=== PATIENT | male | born 1970 | race Caucasian/White ===

== ENCOUNTER 2024-09-06 10:04 | Day surgery (SDC) | payer OTHER, SELFPAY ==
[2024-09-06] VITALS (18 sets, daily range): BP systolic 112–140; BP diastolic 74–98; PULSE 76–89; RESP 10–16; TEMP 35.9–37.4; O2SAT 92–97; BMI 32.5
--- OUTSIDE RECORDS SUMMARY | 2024-09-06 10:13 | XMS_ITS | Clinical Summary ---
Author Organization [facility] Address [place], [place] [address] Care Team Providers Care Human Resources Psychologist Name Role Phone Gosia Lang MD Primary Care Provider [phone] Allergies Active Allergy Reactions Criticality Noted Date Comments Sulfa (Sulfonamide Antibiotics) Hives High Medications ibuprofen (ADVIL; MOTRIN) 200 mg tablet Take 400 mg by mouth every 6 hours if needed. Active acetaminophen (TYLENOL EXTRA STRGTH) 500 mg tablet Take 500 mg by mouth every 6 hours if needed. Max acetaminophen dose: 4000mg in 24 hrs. Active oxyCODONE-aceta minophen (PERCOCET) 5-325 mg per tabletIndicatio ns:Closed fracture of right ankle, initial encounter Take 1-2 Tablets by mouth every 4 hours if needed for Pain. Max acetaminophen dose: 4000mg in 24 hrs. 10 Tablet 5 2:51 PM GRADES 7 8 TUTOR 09/01/19 25 Active docusate (COLACE) 100 mg capsuleIndicati ons:Closed fracture of right ankle, initial encounter Take 1 Capsule (100 mg) by mouth two times daily. 10 Capsule 5 2:51 PM GRADES 7 8 TUTOR 09/01/19 25 Active cholecalciferol (VITAMIN D3) 50,000 unit capsuleIndicati ons:Vitamin D deficiency Take 1 Capsule (50,000 units) by mouth every Friday and . 24 Capsule 09/06/19 25 Active durable medical equipment (DME)Indication s:Closed fracture of base of fifth metatarsal bone of left foot at metaphyseal-anali physeal junction, initial encounter suha Ann xlarge, Ref: -XL 1 Each 01/10/20 21 025 Discontin ued(*Nandini ent states no longer taking) oxyCODONE (ROXICODONE) 5 mg immediate release tabletIndicatio ns:Umbilical hernia without obstruction and without gangrene,Ventra l hernia without obstruction or gangrene Take 1 Tablet (5 mg) by mouth every 4 hours if needed for Pain. 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 [place] [address] Ryne Jean MD Closed fracture of right ankle, initial encounter (Primary Dx) Discharge Disposition: Home Self Care 09/01/2024 Travel 08/19/2024 11:30 AM GRADES 7 8 TUTOR Office Visit [address] [address] Lisset Vargas DO Consult (hernia umbilical) 08/19/2024 Travel 08/16/2024 9:10 AM GRADES 7 8 TUTOR Office Visit [address] [address] Luis Manuel Dean PA Lump (uncomfortable - pain, shortness of breath with it x 2 yrs) 08/16/2024 Travel from Last 3 Months Immunizations Name Administration Dates Next Due COVID-19 vaccine (Moderna 10 0mcg/0.5mL) PF, MDV 11/29/2020,11/01/2020 Influenza Virus, Unspecified 05/25/2013 Influenza, IIV3 (Age >=3 years) 05/24/2013 Influenza, IIV4 06/28/2023,05/28/2021,05/29/2020 Tdap 04/14/2009 Family History Medical History Relation Name Comments No Known Problems Brother 1 Allergies Brother 2 sunflower and g rains No Known Problems Daughter Heart Disease Father [place] x4 No Known Problems Half-Brother No Known Problems Half-Sister No Known Problems Maternal Aunt No Known Problems Maternal Uncle Arthritis Mother No Known Problems Paternal Aunt Heart Disease Paternal Grandmother No Known Problems Paternal Uncle No Known Problems Sister 1 No Known Problems Sister 2 No Known Problems Son Relation Name Status Comments Brother 1 Alive Brother 2 Daughter Father Alive Half-Brother Half-Sister Maternal Aunt Maternal Grandfather Maternal Grandmother Maternal Uncle Mother Alive Paternal Aunt Paternal Grandfather Paternal Grandmother Paternal Uncle Sister 1 Alive Sister 2 Alive Son Social History Tobacco Use Types Packs/Day Years Used Date Smoking Tobacco: Never Smokeless Tobacco: Never Tobacco Cessation:Counseling Given: Yes Alcohol Use Standard Drinks/Week Comments Not Currently 0 (1 standard drink = 0.6 oz pur e alcohol) PHQ-2 Answer Date Recorded PHQ-2 TOTAL SCORE 0 08/16/2024 Financial Resource Strain Answer Date R ecorded Difficulty of Paying Living Expenses Not on file 08/04/2021 Difficulty of Paying Living Expenses Not on file 08/04/2021 Interpersonal Safety Answer Date Record ed Are you being hit, kicked, p ushed or yelled at (see row info)? 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 Not on file Not on file Obstetrics History Last Filed Vital Signs Vital Sign Reading Time Taken Comments Blood Pressure 128/82 09/03/2024 9:28 AM GRADES 7 8 TUTOR Pulse 88 09/03/2024 9:28 AM GRADES 7 8 TUTOR Temperature 36.8 C (98.2 F) 09/01/2024 10:13 AM GRADES 7 8 TUTOR Respiratory Rate 16 09/01/2024 2:16 PM GRADES 7 8 TUTOR Oxygen Saturation 96% 09/03/2024 9:28 AM GRADES 7 8 TUTOR Inhaled Oxygen Concentration - - Weight 116.8 kg (257 lb 6.4 oz) 09/02/2024 1:22 PM GRADES 7 8 TUTOR Height 185.4 cm (6' 1) 09/01/2024 10:1 3 AM GRADES 7 8 TUTOR Body Mass Index 33.96 09/01/2024 10:13 AM GRADES 7 8 TUTOR Plan of Treatment Upcoming Encounters Date Type Department Care Team (Late st Contact Info) Description 09/14/2024 11:00 AM GRADES 7 8 TUTOR [facility] [address] [place] [address] Kehinde Lowery DPM [address] [place] [address] 09/21/2024 9:45 AM GRADES 7 8 TUTOR [facility] [place] [address] [address] [phone] Kehinde Lowery DPM [address] [place] [address] 09/28/2024 7:30 AM GRADES 7 8 TUTOR Office Visit [address] [phone] Luis Manuel Dean PA [address] [place] [address] 10/06/2024 8:15 AM GRADES 7 8 TUTOR Hospital Encounter [address] [address] Lisset Vargas [address] [place] [address] 10/06/2024 8:15 AM GRADES 7 8 TUTOR - 10/06/2024 11:45 AM GRADES 7 8 TUTOR Surgery [address] [address] Lisset Vargas [address] [address] Robotic assisted laparoscopic ventral and umbilical hernia repair with possible mesh 10/14/2024 10:45 AM CDT [facility] [address] [address] Kehinde Lowery, DPM [address] [place] [address] 10/25/2024 8:30 AM CDT Office Visit [address] [address] Luz Marina Smalls PA [address] [place] [address] Scheduled Procedures Name Priority Associated Diagnoses Date/Ti co ROBOTIC ASSISTED UMBILICAL HERNIA REPAIR XI Elective Umbilical hernia without obstruction and without gangrene Ventral hernia without obstruction or gangrene 10/06/2024 8:15 AM GRADES 7 8 TUTOR LAPAROSCOPIC HERNIORRHAPHY VENTRAL Elective Umbilical hernia without obstruction and without gangrene Ventral hernia without obstruction or gangrene 10/06/2024 8:15 AM GRADES 7 8 TUTOR Health Maintenance Due Date Last Done Comments HIV for age 15-65 1983 Hepatitis C screening for ag e 18-79 1986 Lipids for age 45-75 2013 Pneumococcal series for age 50+ (1 of 1 - PCV) 2018 Zoster (shingles) series for age 50+ (1 of 2) 2018 Tetanus booster 04/14/2019 04/14/2009 Colonoscopy through age 75 03/03/2023 09/03/2022 COVID-19 vaccine series ( season) 2024 06/15/2023, 06/26/2021, 11/29/2020, Additional history exists Influenza for age 50-64 04/04/2024 06/28/20, 05/28/2021, 05/29/2020, Additional history exists BMI (ht and wt on same day) for age 18+ 08/16/2025 08/16/2024, 04/24/2022, 02/09/2021, Additional history exists Depression screening for age 12+ 08/19/2025 08/19/2024, 08/16/2024, 04/24/2022, Additional history exists Tdap Completed 04/14/2009 Medical Devices Implanted Type Area Employee Health Rn Device Identifier Shelf Expiration Date Model / Serial / Lot 5.5mm Low Profile Ulrich Screw Titanium Implanted:Qty: 1 on 01/15/2021 by Kehinde Lowery DPM at [facility] Left: Foot [employer] / / N/A Procedures Procedure Name Priority Date/Time Associated Diagnosis Comments VITAMIN D 25 (DEFICIENCY) Routine 09/03/2024 9:57 AM GRADES 7 8 TUTOR Vitamin D deficiency CBC W PLT NO DIFF Routine 09/03/2024 9:5 7 AM GRADES 7 8 TUTOR Pre-operative examination BASIC METABOLIC PANEL Routine 09/03/2024 9:57 AM GRADES 7 8 TUTOR Pre-operative examination XR ANKLE 2 VIEWS RIGHT STAT 09/01/2024 1:11 PM GRADES 7 8 TUTOR XR ANKLE 2 VIEWS RIGHT PORTABLE STAT 09/01/2024 12:12 PM GRADES 7 8 TUTOR XR ANKLE 3 VIEWS RIGHT STAT 09/01/2024 10:19 AM GRADES 7 8 TUTOR COLONOSCOPY 09/03/2022 7:20 AM GRADES 7 8 TUTOR from Last 3 Months or Most Recently Relevant to Health Maintenance Results * (ABNORMAL) VITAMIN D 25 (DEFICIENCY) (09/03/2024 9:57 AM GRADES 7 8 TUTOR) Pathologist [facility] VITAMIN D,25-OH,TOTAL,IA 14(L) 30 - 100 ng/mL [employer] Comment: Vitamin D Status 25-OH Vitamin D: Deficiency: <20 ng/mL Insufficiency: 20 - 29 ng/mL Optimal: > or = 30 ng/mL For 25-OH Vitamin D testing on patients on D2-supplementation and patients for whom quantitation of D2 and D3 fractions is required, the QuestAssureD(TM) 25-OH VIT D, (D2,D3), LC/MS/MS is recommended: order code 30782 (patients >2yrs). See Note 1 Note 1 For additional information, please refer to http://education.DinnerTime/faq/TZP286 (This link is being provided for informational/ educational purposes only.) Blood BLOOD SPECIMEN / Unknown 09/03/2024 9:57 AM GRADES 7 8 TUTOR 09/03/2024 9:58 AM GRADES 7 8 TUTOR Narrative [facility] - 09/04/2024 5:17 AM GRADES 7 8 TUTOR FASTING:NO FASTING: NO Gosia Lang MD SEND OUTS Final Resu lt [facility] [address] [place] [address], [facility] [address] [place] [address] * CBC W PLT NO DIFF (09/03/2024 9:57 AM GRADES 7 8 TUTOR) Pathologist [facility] WHITE BLOOD CELL COUNT 7.5 3.8 - 10.8 Thousand/u L [employer] RED BLOOD CELL COUNT 5.30 4.20 - 5.80 Million/uL [facility] HEMOGLOBIN 16.7 13.2 - 17.1 g/dL [facility] HEMATOCRIT 47.1 38.5 - 50.0 % [facility] MCV 88.9 80.0 - 100.0 fL [employer] MCH 31.5 27.0 - 33.0 pg [facility] MCHC 35.5 32.0 - 36.0 g/dL [employer] Comment: For adults, a slight decrease in the calculated MCHC value (in the range of 30 to 32 g/dL) is most likely not clinically significant; however, it should be interpreted with caution in correlation with other red cell parameters and the patient's clinical condition. RDW 13.1 11.0 - 15.0 % [employer] PLATELET COUNT 144 140 - 400 Thousand/u L [employer] MPV 10.8 7.5 - 12.5 fL [employer] Blood BLOOD SPECIMEN / Unknown 09/03/2024 9:57 AM GRADES 7 8 TUTOR 09/03/2024 9:58 AM GRADES 7 8 TUTOR Narrative [facility] - 09/04/2024 3:59 AM GRADES 7 8 TUTOR FASTING:NO FASTING: NO us Gosia Lang MD HEMATOLOGY Final Resu lt [facility] [address] [place] [address], [facility] [address] [place] [address] * BASIC METABOLIC PANEL (09/03/2024 9:57 AM GRADES 7 8 TUTOR) [facility] GLUCOSE 93 65 - 139 mg/dL [employer] Comment: Non-fasting reference interval UREA NITROGEN (BUN) 17 7 - 25 mg/dL [employer] CREATININE 0.80 0.70 - 1.30 mg/dL [facility] EGFR 104 > OR = 60 mL/min/1. 73m2 [facility] BUN/CREATININE RATIO SEE NOTE: 6 - 22 (calc) [facility] Comment: Not Reported: BUN and Creatinine are within reference range. SODIUM 139 135 - 146 mmol/L [facility] POTASSIUM 4.0 3.5 - 5.3 mmol/L [facility] CHLORIDE 108 98 - 110 mmol/L [facility] CARBON DIOXIDE 24 20 - 32 mmol/L [facility] ELECTROLYTE BALANCE 7 7 - 17 mmol/L (calc) [facility] CALCIUM 8.8 8.6 - 10.3 mg/dL [facility] Blood BLOOD SPECIMEN / Unknown 09/03/2024 9:57 AM GRADES 7 8 TUTOR 09/03/2024 9:58 AM GRADES 7 8 TUTOR Narrative [facility] - 09/04/2024 3:59 AM GRADES 7 8 TUTOR FASTING:NO FASTING: NO Gosia Lang MD CHEMISTRY Final Resu lt [facility] [address] [place] [address], [facility] [address] [place] [address] * XR ANKLE 2 VIEWS RIGHT (09/01/2024 1:11 PM GRADES 7 8 TUTOR) Anatomical Region Laterality Modality ANKLES, ANKLE R Digital Radiogra phy 09/01/2024 1:31 PM GRADES 7 8 TUTOR Narrative 09/01/2024 1:31 PM GRADES 7 8 TUTOR For Patients: As a result of the Century Cures Act, medical imaging exams and procedure reports are released immediately into your electronic medical record. You may view this report before your referring provider. If you have questions, please contact your health care provider. INDICATION: Postreduction recheck. Technique : Three views right ankle Comparison : Two views of the right ankle obtained earlier on this same date. Findings : Acute trimalleolar fracture. Lateral talar and fibula subluxation very slightly diminished from the previous study. Allowing for appropriate medial ankle joint spacing, the lateral subluxation is approximally 6 mm versus 8 on the previous. No AP subluxation. Dictated by Maria Esther Paniagua MD @ 09/01/2024 1:31:09 PM (Electronically Signed) Procedure Note Alfonso Paniagua MD - 09/01/2024 For Patients: As a result of the Cures Act, medical imagingexams and procedure reports are released immediately into your electronicmedical record. You may view this report before your referring provider.If you have questions, please contact your health care provider. INDICATION: Postreduction recheck. Technique : Three views right ankle Comparison : Two views of the right ankle obtained earlier on this same date. Findings : Acute trimalleolar fracture. Lateral talar and fibula subluxation very slightly diminished from theprevious study. Allowing for appropriate medial ankle joint spacing, thelateral subluxation is approximally 6 mm versus 8 on the previous. No APsubluxation. Dictated by Maria Esther Paniagua MD @ 09/01/2024 1:31:09 PM (Electronically Signed) Ryne Jean MD GENERAL IMAGING Final Re sult * XR ANKLE 2 VIEWS RIGHT PORTABLE (09/01/2024 12:12 PM GRADES 7 8 TUTOR) Anatomical Region Laterality Modality ANKLES, ANKLE R Digital Radiogra phy 09/01/2024 12:2 1 PM GRADES 7 8 TUTOR Narrative 09/01/2024 12:21 PM GRADES 7 8 TUTOR For Patients: As a result of the Cures Act, medical imaging exams and procedure reports are released immediately into your electronic medical record. You may view this report before your referring provider. If you have questions, please contact your health care provider. Indication: Post reduction/recheck Technique: Two views of the right ankle Comparison: Same-day right ankle radiograph Findings/Impression: Overlying cast limits osseous and soft tissue details. Grossly unchanged alignment of the right ankle trimalleolar fracture-dislocation with lateral displacement of the talus relative to the tibia by approximately 1.2 centimeters. Dictated by Jam Noe MD @ 09/01/2024 12:21:10 PM (Electronically Signed) Procedure Note Jam Noe MD - 09/01/2024 For Patients: As a result of the Cures Act, medical imagingexams and procedure reports are released immediately into your electronicmedical record. You may view this report before your referring provider.If you have questions, please contact your health care provider. Indication: Post reduction/recheck Technique: Two views of the right ankle Comparison: Same-day right ankle radiograph Findings/Impression: Overlying cast limits osseous and soft tissue details. Grossly unchanged alignment of the right ankle trimalleolarfracture-dislocation with lateral displacement of the talus relative tothe tibia by approximately 1.2 centimeters. Dictated by Jam Noe MD @ 09/01/2024 12:21:10 PM (Electronically Signed) Ryne Jean MD GENERAL IMAGING Final Re sult * XR ANKLE 3 VIEWS RIGHT (09/01/2024 10:19 AM GRADES 7 8 TUTOR) Anatomical Region Laterality Modality ANKLES, ANKLE R Digital Radiogra phy 09/01/2024 10:3 7 AM GRADES 7 8 TUTOR Narrative 09/01/2024 10:37 AM GRADES 7 8 TUTOR For Patients: As a result of the Cures Act, medical imaging exams and procedure reports are released immediately into your electronic medical record. You may view this report before your referring provider. If you have questions, please contact your health care provider. Indication: Trauma Technique: Three views of the right ankle Comparison: None Findings: Obliquely oriented, displaced fracture of the distal fibula. Transverse, displaced fracture of the medial malleolus. Obliquely oriented, nondisplaced fracture of the posterior malleolus. The talus is displaced laterally relative to the tibia by approximately 1.4 centimeters. The distal fracture segments of the fibula and tibia maintain their articulation with the talus. Small ankle effusion. Mild soft tissue edema about the ankle. No suspicious osseous lesions. Os trigonum. The soft tissues are unremarkable. Impression: Trimalleolar fracture-dislocation as detailed above. Dictated by Jam Noe MD @ 09/01/2024 10:37:44 AM (Electronically Signed) Procedure Note Jam Noe MD - 09/01/2024 For Patients: As a result of the Cures Act, medical imagingexams and procedure reports are released immediately into your electronicmedical record. You may view this report before your referring provider.If you have questions, please contact your health care provider. Indication: Trauma Technique: Three views of the right ankle Comparison: None Findings: Obliquely oriented, displaced fracture of the distal fibula. Transverse,displaced fracture of the medial malleolus. Obliquely oriented,nondisplaced fracture of the posterior malleolus. The talus is displaced laterally relative to the tibia by approximately1.4 centimeters. The distal fracture segments of the fibula and tibiamaintain their articulation with the talus. Small ankle effusion. Mild soft tissue edema about the ankle. No suspicious osseous lesions. Os trigonum. The soft tissues are unremarkable. Impression: Trimalleolar fracture-dislocation as detailed above. Dictated by Jam Noe MD @ 09/01/2024 10:37:44 AM (Electronically Signed) us Ryne Jean MD GENERAL IMAGING Final Re sult * COLONOSCOPY (09/03/2022 7:20 AM GRADES 7 8 TUTOR) 09/03/2022 7:20 AM GRADES 7 8 TUTOR Narrative Transcriptions Sonali Giron DO - 09/03/2022 8:00 AM CST Patient Name: Barber Da Silva Procedure Date: 09/03/2022 Gender: Male Date of : 1970 Admit Type: Ambulatory Procedure: Colonoscopy Proceduralist: Sonali Giron MD [facility] Referring MD: Sonali Giron MD Indications/Pre-Op Diagnosis: This is the patient's first colonoscopy, Positive fecal immunochemical test Medications: Propofol per Anesthesia Procedure Description: The patient had risks, benefits and alternatives explained to andgave informed consent. The patient had a stable cardiopulmonary status and judged an adequate candidate for conscious sedation. The endoscope [id number] was passed through the anus andadvanced to the cecum, identified by appendiceal orifice and ileocecal valve.The colonoscopy was performed without difficulty. The patient toleratedthe procedure well. The quality of the bowel preparation was good. The ileocecal valve, appendiceal orifice, and rectum were photographed. Complications: No immediate complications. Estimated Blood Loss & Specimen: Estimated blood loss: none. Specimen collected - Yes and sent to Laboratory Findings: A 4 mm polyp was found in the sigmoid colon. The polyp was sessile.The polyp was removed with a hot snare. Resection and retrieval were complete. Verification of patient identification for the specimen was done. Estimated blood loss was minimal. Non-bleeding internal hemorrhoids were found during retroflexion. The hemorrhoids were Grade II (internal hemorrhoids that prolapse butreduce spontaneously). Impressions/Post-Op Diagnosis: - One 4 mm polyp in the sigmoid colon, removed with a hot snare. Resected and retrieved. - Non-bleeding internal hemorrhoids. Recommendation: - Discharge patient to home. - Patient has a contact number available for emergencies. The signsand symptoms of potential delayed complications were discussed with the patient. Return to normal activities tomorrow. Written discharge instructions were provided to the patient. - High fiber diet. - Continue present medications. - Await pathology results. - Repeat colonoscopy in 5-10 years for surveillance based onpathology results. Moderate Sedation: Moderate (conscious) sedation was personally administered by an anesthesia professional. The following parameters were monitored:oxygen saturation, heart rate, blood pressure, and response to care. Sonali Giron MD 09/03/2022 7:59:58 AM This report has been signed electronically. 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 Healthcare Directive 04/16/2022 022 * Full Code (Latest Code Status on File) Date Activated Date Inactivated Comments 09/03/2022 6:48 AM 09/03/2022 11:11 AM Question Answer Comments Code Status Discussion: Discussed * Full Code Date Activated Date Inactivated Comments 04/15/2022 11:51 PM 04/19/2022 1:00 PM Question Answer Comments Code Status Discussion: Reviewed Preferences * Full Code Date Activated Date Inactivated Comments 01/15/2021 7:31 AM 01/15/2021 1:42 PM Question Answer Comments Code Status Discussion: Discussed Care Teams Human Resources Psychologist Relationship Specialty Start Date End Date Gosia Lang MD PCP - General 08/15/08
--- OUTSIDE RECORDS SUMMARY | 2024-09-06 10:13 | XMS_ITS | Clinical Summary ---
Author Organization [facility] Address [address] [place] [address] Care Team Providers Care Pourer Metal Name Role Phone Gosia Lang MD Primary Care Provider [phone] Source Comments You are receiving this document as you are listed as the primary care provider,follow-up provider, or the patient has been referred to you for consultation.This is in compliance with the Medicare and[facility] EHR Incentive Program,which states Providers who transition their patient to another setting of careor provider of care or refers their patient to another provider of care shouldprovide summary care record for each transition of care or referral. [facility] Daily Caller Allergies Active Allergy Reactions Criticality Noted Date Comments Sulfa Antibiotics 11/03/2017 Childhood Medications No known medications Active Problems No known active problems Social History Tobacco Use Types Packs/Day Years Used Date Smoking Tobacco: Never Assessed Sex and Gender Information Value Date Recorded Sex Assigned at Not on file Gender Identity Not on file Sexual Orientation Not on file Plan of Treatment Health Maintenance Due Date Last Done Comments Colon Cancer Screening Plan Due 1968 Hep C Screening (Preventive Services) 1968 PSA Screening Discussion 1968 HIV Screening (Preventive Services) 1984 Adult Preventive Visit 1986 HepB (1) 1987 Cholesterol 2003 Zoster/Shingles (1 of 2) 2018 DTaP/Tdap/Td (2 - Tdap) 04/14/2019 04/14/2009 COVID-19 Vaccine (2 - 2023-2 5 season) 2024 11/01/2020 Influenza (#1) 2024 05/29/2020, 05/24/2013 HepA Aged Out No longer eligi ble based on patient's age to complete this topic Hib Aged Out No longer eligi ble based on patient's age to complete this topic IPV (Polio) Aged Out No longer eligi ble based on patient's age to complete this topic MCV4 Aged Out No longer eligi ble based on patient's age to complete this topic Pneumococcal Aged Out No longer eligi ble based on patient's age to complete this topic Care Teams Pourer Metal Relationship Specialty Start Date End Date Gosia Lagn MD [address] [place] [address] JANE MERAZ [id number] PCP - General 03/11/16
[2024-09-06] MEDS: SODIUM CHLORIDE 0.9 % (FLUSH) 10 ML SYRINGE IVF (10:47)
[2024-09-06] MEDS: LACTATED RINGERS 500 ML 500 ML 100 ML IV ×2 (10:49→11:35)
[2024-09-06] MEDS: MIDAZOLAM HCL 1 MG/ML inj IVP (11:08)
[2024-09-06] MEDS: fentaNYL 100 MCG/2 ML inj IVP (11:08)
--- NOTE | 2024-09-06 11:16 | SUR.PREOP ---
TIME?OUT:?1107 PT/Humera Taylor RN/Dr. Nick MDA?VERIFICATION?OF?SURGICAL?SITE right ankle,?PROCEDURE,?AND?CONSENT OBTAINED?PRIOR?TO?INVASIVE?PROCEDURE.
--- NOTE | 2024-09-06 11:30 | CRLHL7_ITS ---
For Patients: As a result of the Cures Act, medical imaging exams and procedure reports are released immediately into your electronic medical record. You may view this report before your referring provider. If you have questions, please contact your health care provider. Indication: ORIF Right Ankle Technique: 3 fluoroscopic images of right ankle. Fluoroscopic time 1 minute 2.9 seconds. IMPRESSION: Fluoroscopic guidance for open reduction internal fixation. Dictated by Miki Em MD @ 09/06/2024 1:46:11 PM (Electronically Signed)
[2024-09-06] MEDS: CEFAZOLIN 2 GM INJ IVP (11:34)
--- NOTE | 2024-09-06 11:39 | P.ANES_ITS ---
Anesthesia Charges Start Date/Time Anesthesia Start Date: 09/06/24 Anesthesia Start Time: 11:15 Stop Date/Time Anesthesia Stop Date: 09/06/24 Anesthesia Stop Time: 14:21 Coding CPT Codes CPT Codes: ANESTH LOWER LEG BONE SURG - 11332 ([id number]) P2 - PATIENT W/MILD SYST DISEASE, QK - DIRECTOR ENTERPRISE SALES 2-4 CNCRNT ANES PROC, QX - PUBLIC HEALTH SANITARIAN SVC W/ MD MED DIRECTION
--- NOTE | 2024-09-06 11:39 | W.ANESCHARGE ---
Anesthesia Charges Start Date/Time Anesthesia Start Date: 09/06/24 Anesthesia Start Time: 11:15 Stop Date/Time Anesthesia Stop Date: 09/06/24 Anesthesia Stop Time: 14:21 Coding CPT Codes CPT Codes: ANESTH LOWER LEG BONE SURG - 69418 ([id number]) P2 - PATIENT W/MILD SYST DISEASE, QK - HOUSEKEEPING ASSISTANT 2-4 CNCRNT ANES PROC, QX - BARREL RIFLER BROACH SVC W/ MD MED DIRECTION
--- NOTE | 2024-09-06 11:39 | W.PM.NB ---
Nerve Block Nerve Block Time Seen by Provider: 11:12 Date Seen: 09/06/24 Type of block requested by surgeon for post-operative analgesia: adductor canal Side: right Time out performed: Yes Verification of patient name: Yes Verification of date of : Yes Site marking: site marked Name of person performing procedure: Nick Continuous monitoring Was continuous monitoring of O2 sat, B/P, manager cardiac, recorded every 15 minutes?: Yes Procedure Checklist: sterile prep, needles and gloves Ultrasound guided. Images saved: Yes Medications given in 5ml increments after negative aspiration: Marcaine %: 0.25 mL: 10 Needle gauge: 20 and Exparel mL: 5 Patient tolerated procedure well: Yes Block Charges Block Charge (with Pro Fee): Femoral Nerve Use of Ultrasound Machine for Block: Yes- US Guidance/pain block
--- NOTE | 2024-09-06 11:40 | W.PM.NB ---
Nerve Block Nerve Block Time Seen by Provider: 11:10 Date Seen: 09/06/24 Type of block requested by surgeon for post-operative analgesia: popliteal Side: right Time out performed: Yes Verification of patient name: Yes Verification of date of : Yes Site marking: site marked Name of person performing procedure: Nick Continuous monitoring Was continuous monitoring of O2 sat, B/P, nuclear monitoring technician, recorded every 15 minutes?: Yes Procedure Checklist: sterile prep, needles and gloves Ultrasound guided. Images saved: Yes Medications given in 5ml increments after negative aspiration: Marcaine %: 0.25 mL: 15 Needle gauge: 20 and Exparel mL: 5 Patient tolerated procedure well: Yes Additional comments: Needle noted adjacent to nerve Block Charges Block Charge (with Pro Fee): Sciatic Nerve Use of Ultrasound Machine for Block: Yes- US Guidance/pain block
[2024-09-06] MEDS: BUPIVACAINE 0.25% 30 ML INJECTION (14:00)
--- NOTE | 2024-09-06 14:28 | P.ANES_ITS ---
Anesthesia Charges Start Date/Time Anesthesia Start Date: 09/06/24 Anesthesia Start Time: 11:15 Stop Date/Time Anesthesia Stop Date: 09/06/24 Anesthesia Stop Time: 14:21 Coding CPT Codes CPT Codes: ANESTH LOWER LEG BONE SURG - 56508 ([id number]) P2 - PATIENT W/MILD SYST DISEASE, QK - SOLUTIONS DEVELOPMENT ANALYST 2-4 CNCRNT ANES PROC, QX - FOAM TANK LAMINATOR SVC W/ MD MED DIRECTION
--- NOTE | 2024-09-06 14:28 | W.ANESCHARGE ---
Anesthesia Charges Start Date/Time Anesthesia Start Date: 09/06/24 Anesthesia Start Time: 11:15 Stop Date/Time Anesthesia Stop Date: 09/06/24 Anesthesia Stop Time: 14:21 Coding CPT Codes CPT Codes: ANESTH LOWER LEG BONE SURG - 03960 ([id number]) P2 - PATIENT W/MILD SYST DISEASE, QK - INFORMATION SECURITY ENGINEER 2-4 CNCRNT ANES PROC, QX - CONSTRUCTION EQUIPMENT MECHANIC SVC W/ MD MED DIRECTION
--- NOTE | 2024-09-06 14:30 | W.PODPROC_ITS ---
Date of Procedure: 09/06/24 Surgeon: Kehinde Lowery DPM Pre-op Diagnosis: 1. Right trimalleolar ankle fracture Post-op Diagnosis: 1. Right trimalleolar ankle fracture 2. Ankle syndesmotic disruption right Type of Procedure: 1. ORIF of right trimalleolar ankle fracture 2. ORIF of right ankle syndesmotic disruption Indications: Patient sustained a trimalleolar ankle fracture which required surgical intervention. I reviewed the procedure, recovery, expectation potential complications. These include but not limited to: Poor wound healing, infection, malunion, delayed union, nonunion, hardware irritation or failure, nerve injury, potentially future surgery, deep venous thrombosis, pulmonary embolism, complex regional pain syndrome and possible . He understands risks and written consent obtained. Site marked. Procedure Description: Patient brought the operating room placed supine position on the operating table. He had a preoperative popliteal block by Anesthesia. He was then placed under general anesthesia. Is prepped and draped in sterile fashion. Standard time-out protocol followed. The right limb was exsanguinated the thigh tourniquet inflated to 300 mm Hg. Linear incision was made along the lateral distal fibula. The incision was carried down through skin subcutaneous tissues. Blunt dissection was carried through the deep fascia to the periosteum with a was significant periosteal stripping at the fracture site. Periosteum was reflected away from the fracture site. Fracture site was carefully cleared of debris and fracture edges freshened. Fracture was then anatomically reduced and held in place with multiple reduction forceps. C-arm confirmed excellent anatomic position. A interfrag lag screw was placed from anterior to posterior across the fracture site. A pre contoured lateral fibular plate was then a pplied. A 3.5 mm cortical nonlocking screw was placed in the slotted portion of the plate proximal to the fracture. 2.7 mm locking screw was placed distal to the fracture. C-arm confirmed position. Three additional 2.7 mm locking screws were placed distal to the fracture and 2 additional 3.5 mm cortical locking screws were placed proximal to fracture. There is a small additional fracture at the attachment of the anterior distal tib-fib ligament that was too small for hardware. I was able to suture the periosteum of this fragment in place holding reasonable reduction. Linear incision was made vertically over the medial malleolus. The incision was carried down through skin subcutaneous tissues. Significant amount of periosteal stripping was noted this was reflected away from the fracture site. Significant amount of periosteum and involuted into the fracture site was removed. The medial aspect of the talus was inspected and there was no damage. Wound was thoroughly irrigated with normal sterile saline as well as the ankle joint. Large reduction clamp applied and the fracture fragment reduced and anatomic alignment. C-arm confirmed position. Guide pin was placed across the fracture site checked with C-arm. Second guide pin was placed parallel and posterior 1st. 50 mm partially-threaded 4 point cancellous screw was then inserted over the anterior guide pin. A 44 mm partially-threaded 4.0 cancellous screw was then inserted over the posterior guide pin. The screws in tensioned image shorter to make room for tight rope syndesmotic repair. The posterior malleolar fragment had reduced into anatomic alignment incorporating only a small amount of the articular surface. Guide pin was then placed through the lateral plate into the tibia exiting medially. Direct visualization the pin was observed. C-arm confirmed position. A guide pin was overdrilled and the tightrope device inserted. The medial button was flipped firmly down to the periosteum this was visualized directly. With the ankle in dorsiflexion the tightrope was cinched down. Stress views indicated adequate repair of the syndesmosis. All wounds were thoroughly irrigated normal sterile. Periosteum deep fascia repaired with 3-0 Vicryl. Subcutaneous tissues reapproximated both 3-0 Vicryl and 4-0 Vicryl. Skin closed with ermias. Tourniquet was released prior to wound closure and no active bleeding noted. 20 mL of 0.25% Marcaine plain injected along the incision sites. Sterile dressing was applied and well-padded [id number] plaster splint placed. He was transferred from OR to PACU vital signs stable and vascular status intact to the right lower extremity. He will be discharged per same-day surgery protocol. He is nonweightbearing. He is given both written and verbal postop instructions. He will start Xarelto 10 mg once daily tomorrow. Was given oxycodone for pain. Anesthesia: GETA and regional Hemostasis: thigh Estimated blood loss (mL): 10 Implants: Arthrex precontoured lateral distal fibular plate x1, 3.5 mm cortical screw x2, 3.5 mm cortical locking screw x2, 2.7 mm cortical locking screw x4. Tight with implant x1, 4.0 mm cancellous partially threaded screw x2. Specimens: none sent Disposition: PACU
[2024-09-06] MEDS: KETOROLAC 30 MG/ML inj IVP (16:10)
--- NOTE | 2024-09-06 16:16 | SUR.PHASEII ---
pt reports a headache. Declines food and drink. Encouraged PO intake.
--- NOTE | 2024-09-06 17:02 | SUR.PHASEII ---
Reviewed d/c instructions with patient and significant other. all questions answered. Pt declines food. Headache better after Toradol. Drank sprite and water. Q easy patch given to patient upon discharge. Wheelchair out to car with granddaughter and significant other.
== END 2024-09-06 17:06 | disposition home or self-care (01) ==
PROVIDERS: PCP Physician Assistant; Visit Provider Podiatrist
PROC: (CPT 27822; principal; 2024-09-06 11:30)
DX: S82.851A Displaced trimalleolar fracture of right lower leg, initial encounter for closed fracture (principal); S93.431A Sprain of tibiofibular ligament of right ankle, initial encounter; G89.18 Other acute postprocedural pain
CPT/HCPCS: 27822; 27829; 01480; 64445; 64447; 73600; 76000; 76942; C1713; J0665; J0666; J0690; J1100; J1885; J2250; J2405; J2704; J3010; J3490; J7120